=== PATIENT | male | born 1990 | race Caucasian/White ===

== ENCOUNTER 2021-07-14 11:18 | Emergency (ER) | payer OTHER, SELFPAY ==
[2021-07-14 11:26] VITALS: BP 139/92; PULSE 61; RESP 16; TEMP 36.1; O2SAT 100; BMI 26.4
--- NOTE | 2021-07-14 12:43 | ED_ITS ---
HPI - Eye Problem General Chief complaint: Eye Problems Stated complaint: eye issue Time Seen by Provider: 07/14/21 12:02 Source: patient Mode of arrival: ambulatory History of Present Illness HPI Narrative: 30-year-old male with no significant past medical history presenting to the ED complaining of painful lumps to bilateral eyes x1 month. Reports lump to right upper eyelid and left lower eyelid, fluctuating in size over the past few weeks. Denies injury, trauma, vision change, drainage from eye, vision loss, denies wearing contacts/glasses. MD chief complaint: eye pain Onset (ago): month(s) Related Data Previous Rx's Medication Instructions Recorded erythromycin 5 mg/gram (0.5 %) eye 0.5 inch OPHTHALMIC (EYE) BID #3.5 07/14/21 ointment g Allergies Allergy/AdvReac Type Severity Reaction Status Date / Time No Known Allergies Allergy Verified 07/14/21 11:28 Review of Systems Review of Systems: Constitutional: No Weight loss, No Fever, No Chills, No Night Sweats, No Fatigue, No Malaise ENT/Mouth: No Ear Pain, No sore throat, No Rhinorrhea, No Swallowing Difficulty Eyes: + EyelidPain, No Swelling, No Redness, No Foreign Body, No Discharge, No Vision Changes Cardiovascular: No Chest Pain, No SOB,No Palpitations Respiratory: No Cough, No Dyspnea Gastrointestinal: No Nausea, No Vomiting, No Diarrhea Musculoskeletal: No joint pain, No Myalgias, No Joint Swelling Skin: No Skin Lesions, No rash Neuro: No Weakness, No Headache Yes all other systems are reviewed and are negative [facility] Past Medical History Attestation statement: The following information was validated with the patient. Social History Social History Advance Directives: No Advance Directives Information Provided: No Physical Exam Vital Signs: Vital Signs: Last Vital Signs Temp 96.9 F 07/14/21 11:26 Pulse 61 07/14/21 11:26 Resp 16 07/14/21 11:26 BP 139/92 H 07/14/21 11:26 Pulse Ox 100 07/14/21 11:26 BMI result Body Mass Index 26.4 Const: General: cooperative, healthy appearing, no acute distress, alert and awake Orientation/consciousness: patient oriented x3 Limitations: no limitations HEENT: Head: Yes normal to inspection and Yes atraumatic Ears: hearing grossly normal bilaterally General nose exam: Normal external nose present Face and sinus: Yes normal facial exam Eyes: Other: + hordeolum to right upper eyelid and Left lower eyelid internally with tenderness to palpation. Mild erythema to R eyelid, none to Left. No appreciable intra-articular involvement. No fluctuance/induration Conjunctivae: conjunctivae normal Sclerae: sclerae normal Corneas: corneas normal Pupils: Equal, round and reactive pupils present EOM: EOMs intact bilaterally and no movement deficit Direct Ophthalmoscopy: normal light reflex and no photophobia Neck: Neck: Yes normal visual inspection, Yes no lymphadenopathy and Yes no meningeal signs Resp: Effort & Inspection: normal respiratory effort and no respiratory distress Cardio: Rate: regular rate Heart sounds: S1 normal heart sound present and S2 normal heart sound present Skin: Rashes: no rashes Wounds: no wounds Neuro: General: patient oriented x3, tone normal and no meningeal signs Cranial nerves: Yes Equal, round and reactive pupils present Gait exam (Neuro): Normal gait present Extrem: General: Yes normal to inspection MDM - Eye Problem MDM Narrative Medical decision making narrative: 30-year-old male with no significant past medical history presenting to the ED complaining of painful lumps to bilateral eyes x1 month. On exam vital signs stable, physical exam as above consistent with hordeolum to both eyes. Discussed with patient concern for chalazion development with chronicity, and recommended follow-up with Ophthalmology. Recommended warm compresses, massaging area, and will prescribe erythromycin ointment. Medical Records Attestation: I reviewed the patient's medical records. Lab Data Attestation: I reviewed the patient's lab results. Discharge Plan Discharge Clinical Impression: Hordeolum Patient Disposition: Home, Self-Care Instructions: Stye (ED), Chalazion (ED) Additional Instructions: Continue to apply warm compresses and massage area Erythromycin ointment as a topical antibiotic, use as needed. Take Tylenol and Motrin Please follow-up with ophthalmology If area begins to worsen, pain becomes unbearable, you have visual changes please return to the ED Contin?e aplicando compresas tibias y masajee el ?denice. Lang?ento de eritromicina holly antibi?martin t?shantel, util?celo seg?n sea necesario. Adelaida Tylenol y Motrin Por favor, seguimiento con oftalmolog?a. Si el ?denice comienza a empeorar, el dolor se vuelve insoportable, tiene cambios visuales, regrese al servicio de urgencias. Prescriptions: New erythromycin 5 mg/gram (0.5 %) ointment 0.5 inch ophthalmic (eye) BID Qty: 3.5 0RF Referrals: Lito Haas [Physician] - 1 week Print Language: Persian
== END 2021-07-14 13:12 | disposition home or self-care (01) ==
PROVIDERS: Emergency Provider Emergency Medicine
DX: H00.015 Hordeolum externum left lower eyelid (principal); H00.011 Hordeolum externum right upper eyelid
CPT/HCPCS: 99283